=== PATIENT | male | born 1970 | race Caucasian/White ===

== ENCOUNTER 2017-08-29 19:13 | Emergency (ER) | payer OTHER ==
--- NOTE | 2017-08-29 19:20 | CPEKG ---
Heart Rate: 97 RR Interval: 619 P-R Interval: 128 QRSD Interval: 108 QT Interval: 364 QTC Interval: 463 P Corning: 49 QRS Corning: 56 T Wave Corning: 18 EKG Severity - NORMAL ECG - EKG Impression: SINUS RHYTHM Electronically Signed By: Rex Banda 31-Aug-2017 17:25:49
[2017-08-29 19:33] LABS: PLATELET COUNT 220 10^3/uL (150-400)
[2017-08-29] MEDS ORDERED: LABETALOL HCL 5 MG/ML 20 ML MDV IVP ONE (19:39)
[2017-08-29] MEDS ORDERED: ASPIRIN EC 325 MG TAB PO ONE (19:50)
--- NOTE | 2017-08-29 20:31 | EDPHY ---
H & P Time Seen by Provider: 08/29/17 19:17 HPI/ROS: 47-year-old male presents complaining of 1 week of sharp stabbing left-sided chest pain that he states feels like a needle is stabbing him in the heart and this pain lasts about 1-2 seconds and has happened intermittently all week long , he states following this sharp stabbing pain he often feels that his arm on the left is aching. He denies cough he does state he has had a runny nose. He denies fevers or chills He states he has a family history in both his mother and father of coronary artery disease requiring stents in their 70s. He states there is also family history of diabetes as well as hypertension. He himself has not seen a doctor in approximately 15 years and is not currently elizabeth any specific diagnoses and is not currently on any medications. He denies smoking, drug use and uses alcohol socially. Review of systems As per HPI General no fever no chills no weakness HEENT no eye pain no eye discharge. No eye redness, no sore throat Respiratory no cough, no shortness of breath Cardiac no chest pain, no peripheral edema GI no abdominal pain, no diarrhea, no constipation, no nausea, no vomiting no flank pain, no hematuria, no dysuria Musculoskeletal no myalgias, no joint pain Heme no easy bruising, no easy bleeding Endo no polyuria, no polydipsia Skin no rashes, no pruritus Neuro no syncope, no dizziness, no headaches Psych is no suicidal ideation, no homicidal ideation Past Medical/Surgical History: None Social History: Denies alcohol, drug or tobacco use Smoking Status: Never smoked Physical Exam: 47-year-old male alert and oriented no acute distress nontoxic appearance afebrile HEENT atraumatic normocephalic, extraocular muscles intact, anicteric Oropharynx negative for erythema negative exudate, tolerating her own secretions Neck supple no meningismus Lungs clear to auscultation bilaterally Heart regular rate and rhythm without murmur rub or gallop Abdomen nondistended normoactive bowel sounds soft nontender Back no CVA tenderness, no step-offs, no spinal tenderness Extremities no cyanosis clubbing or edema Neuro alert and oriented, no focal deficits Constitutional: Initial Vital Signs Temperature (C) 36.6 C 08/29/17 19:20 Heart Rate 96 08/29/17 19:20 Respiratory Rate 16 08/29/17 19:20 Blood Pressure 173/105 H 08/29/17 19:20 O2 Sat (%) 94 08/29/17 19:20 O2 Delivery Mode Room Air Allergies/Adverse Reactions: No Known Allergies Allergy (Verified 08/29/17 19:28) Home Medications: Medication Instructions Recorded NO HOME MEDS 08/19/09 Medical Decision Making - Diagnostics EKG Interpretation: ekg nsr rate 90 normal pr interval, normal qt no st elevation no t wave inversion Imaging Results: Imaging Impressions Chest X-Ray 08/29/17 19:26 Impression: No evidence of acute cardiopulmonary abnormality. ED Course/Re-evaluation: Patient seen and evaluated for chest pain of 1 week duration, with associated left arm achiness. Family history of coronary artery disease, no early MIs EKG normal sinus rhythm Chest x-ray normal Troponin x2 normal D-dimer negative CBC within normal limits CMP, lipase within normal limits Patient noted to have high blood pressure upon arrival and while being interviewed, states he may have had high blood pressure intermittently for many years but has not been to a doctor in over 15 years. He was given labetalol 5 mg IV push, tolerated well. He was also given aspirin 325. Impression Atypical chest pain Hypertension Plan Discharge home Advise follow up with primary care physician on Thursday for recheck of blood pressure, and to discuss having a stress test scheduled. Differential Diagnosis: Differential diagnosis considered but not limited to: Pneumonia, ACS, pulmonary embolus, pneumothorax, costochondritis - Data Points Laboratory Results: Laboratory Results 08/29/17 19:20 08/29/17 19:20 08/29/17 08/29/17 08/29/17 21:20 19:20 19:20 WBC RBC Hgb Hct MCV MCH MCHC RDW Plt Count MPV Neut % (Auto) Lymph % (Auto) [place] % (Auto) Eos % (Auto) Baso % (Auto) Nucleat RBC Rel Count Absolute Neuts (auto) Absolute Lymphs (auto) Absolute Monos (auto) Absolute Eos (auto) Absolute Basos (auto) Absolute Nucleated RBC Immature Gran % Immature Gran # D-Dimer < 0.27 ug/mLFEU ug/mLFEU (0.00-0.50) Sodium 143 mEq/L mEq/L (135-145) Potassium 3.9 mEq/L mEq/L (3.5-5.2) Chloride 104 mEq/L mEq/L (97-110) Carbon Dioxide 25 mEq/l mEq/l (22-31) Anion Gap 14 mEq/L mEq/L (8-16) BUN 18 mg/dL mg/dL (7-23) Creatinine 1.1 mg/dL mg/dL (0.7-1.3) Estimated GFR > 60 Glucose 142 mg/dL H mg/dL (70-100) Calcium 9.6 mg/dL mg/dL (8.5-10.4) Total Bilirubin 0.4 mg/dL mg/dL (0.1-1.4) AST 40 IU/L IU/L (17-59) ALT 72 IU/L IU/L (21-72) Alkaline Phosphatase 81 IU/L IU/L (38-126) Troponin I < 0.012 ng/mL ng/mL < 0.012 ng/mL ng/mL (0.000-0.034) (0.000-0.034) Total Protein 8.4 g/dL H g/dL (6.3-8.2) Albumin 4.7 g/dL g/dL (3.5-5.0) Lipase 124 IU/L IU/L (23-300) 08/29/17 19:20 WBC 8.03 10^3/uL 10^3/uL (3.80-9.50) RBC 5.04 10^6/uL 10^6/uL (4.40-6.38) Hgb 15.4 g/dL g/dL (13.7-17.5) Hct 42.1 % % (40.0-51.0) MCV 83.5 fL fL (81.5-99.8) MCH 30.6 pg pg (27.9-34.1) MCHC 36.6 g/dL g/dL (32.4-36.7) RDW 12.4 % % (11.5-15.2) Plt Count 220 10^3/uL 10^3/uL (150-400) MPV 9.6 fL fL (8.7-11.7) Neut % (Auto) 36.9 % L % (39.3-74.2) Lymph % (Auto) 52.6 % H % (15.0-45.0) [place] % (Auto) 8.3 % % (4.5-13.0) Eos % (Auto) 1.6 % % (0.6-7.6) Baso % (Auto) 0.5 % % (0.3-1.7) Nucleat RBC Rel Count 0.0 % % (0.0-0.2) Absolute Neuts (auto) 2.96 10^3/uL 10^3/uL (1.70-6.50) Absolute Lymphs (auto) 4.22 10^3/uL H 10^3/uL (1.00-3.00) Absolute Monos (auto) 0.67 10^3/uL 10^3/uL (0.30-0.80) Absolute Eos (auto) 0.13 10^3/uL 10^3/uL (0.03-0.40) Absolute Basos (auto) 0.04 10^3/uL 10^3/uL (0.02-0.10) Absolute Nucleated RBC 0.00 10^3/uL 10^3/uL (0-0.01) Immature Gran % 0.1 % % (0.0-1.1) Immature Gran # 0.01 10^3/uL 10^3/uL (0.00-0.10) D-Dimer Sodium Potassium Chloride Carbon Dioxide Anion Gap BUN Creatinine Estimated GFR Glucose Calcium Total Bilirubin AST ALT Alkaline Phosphatase Troponin I Total Protein Albumin Lipase Medications Given: Discontinued Medications Aspirin Buffered (Aspirin Ec) 325 mg PO EDNOW ONE Stop: 08/29/17 19:51 Last Admin: 08/29/17 19:56 Dose: 325 mg Labetalol HCl (Trandate Injection) 10 mg IVP ONCE ONE Stop: 08/29/17 19:40 Last Admin: 08/29/17 19:44 Dose: 5 mg Departure - Departure Disposition: Home, Routine, Self-Care Clinical Impression: Chest pain Condition: Good Instructions: Chest Pain (ED), Hypertension (ED) Referrals: NONE *PRIMARY CARE P,. [Primary Care Provider] - As per Instructions
[2017-08-29 22:11] VITALS: BP 118/85
== END 2017-08-29 22:05 | disposition home or self-care (01) ==
LOC: CED 19:13
DX: R07.9 Chest pain, unspecified (principal)
CPT/HCPCS: 71046-PO; 80053-PO; 83690-PO; 84484-PO; 85025-PO; 85378-PO; 96374